=== PATIENT | female | born 1995 | race Caucasian/White ===

== ENCOUNTER 2016-12-27 00:17 | Emergency (ER) | payer BC, OTHER ==
[~2016-12-27] VITALS: Ht 149.9 cm; Wt 63.5 kg
[2016-12-27 00:41] VITALS: BP 165/78
== END 2016-12-27 02:03 | disposition left against medical advice (07) ==
LOC: M ED 01:20
DX: S69.90XA Unspecified injury of unspecified wrist, hand and finger(s), initial encounter (principal); X58.XXXA Exposure to other specified factors, initial encounter; Y92.89 Other specified places as the place of occurrence of the external cause; Y93.89 Activity, other specified; Y99.8 Other external cause status; Z53.29 Procedure and treatment not carried out because of patient's decision for other reasons

== ENCOUNTER 2017-09-01 13:59 | Emergency (ER) | payer BC, OTHER ==
[~2017-09-01] VITALS: Ht 152.4 cm; Wt 61.8 kg
[2017-09-01 15:46] LABS: BASO % 0.2 % (0.0-1.0); EOS # 0.1 10^3/uL (0.0-0.50); EOS % 0.6 % (0.0-3.0); IMMATURE GRANULOCYTE % 0.6 % (0-0); LYMPH # 1.4 10^3/uL (1.5-6.5); LYMPH % 17.5 % (24.0-44.0); MEAN CORPUSCULAR HEMOGLOBIN 28.8 pg (27.0-33.0); MEAN CORPUSCULAR HGB CONC 32.9 g/dl (32.0-36.5); MEAN CORPUSCULAR VOLUME 87.5 fl (80.0-96.0); MONO # 0.7 10^3/uL (0.0-0.8); MONO % 8.1 % (0.0-5.0); NEUTROPHILS # 5.9 10^3/uL (1.8-7.7); PLATELET COUNT, AUTOMATED 320 10^3/uL (150-450); RED CELL DISTRIBUTION WIDTH 11.6 % (11.5-14.5)
[2017-09-01 15:48] LABS: CONTROL LINE HCG INT CTR LINE PRESENT
[2017-09-01 16:22] LABS: CONTROL LINE UCG INT CTR LINE PRESENT
--- NOTE | 2017-09-01 16:48 | REP ---
Clinical: Periumbilical and left lower quadrant abdominal pain. Technique: Upright view of the chest with supine and upright views of the abdomen and pelvis. Findings: Frontal upright view of the chest demonstrates no acute cardiopulmonary process or free air below the diaphragm to suspect pneumoperitoneum. Supine and upright views of the abdomen and pelvis demonstrate nonspecific bowel gas pattern without obstruction or perforation. No organomegaly. No abnormal calcifications. Skeletal structures normal for age. Impression: Nonspecific bowel gas pattern. Signed by Ranjith Ledesma MD 09/01/2017 04:39 P
[2017-09-01 17:24] LABS: ALBUMIN 4.3 GM/DL (3.2-5.2); ALBUMIN/GLOBULIN RATIO 1.23 (1.00-1.93); ALKALINE PHOSPHATASE 69 U/L (45-117); ALT/SGPT 43 U/L (12-78); ANION GAP 8 MEQ/L (8-16); AST/SGOT 24 U/L (7-37); BILIRUBIN,DIRECT < 0.1 MG/DL (0.0-0.2); BILIRUBIN,TOTAL 0.3 MG/DL (0.2-1.0); BLOOD UREA NITROGEN 6 MG/DL (7-18); CALCIUM LEVEL 9.2 MG/DL (8.5-10.1); CARBON DIOXIDE LEVEL 25 MEQ/L (21-32); CHLORIDE LEVEL 107 MEQ/L (98-107); CREATININE FOR GFR 0.65 MG/DL (0.55-1.02); GLOMERULAR FILTRATION RATE > 60.0 (>60); GLUCOSE, FASTING 83 MG/DL (70-105); POTASSIUM SERUM 4.3 MEQ/L (3.5-5.1); SODIUM LEVEL 140 MEQ/L (136-145); TOTAL PROTEIN 7.8 GM/DL (6.4-8.2)
[2017-09-01 17:55] VITALS: BP 128/68
== END 2017-09-01 17:57 | disposition home or self-care (01) ==
LOC: M ED 13:59
DX: R10.9 Unspecified abdominal pain (principal)

== ENCOUNTER → 2017-12-09 | Outpatient (CLI) | payer BC, OTHER | LOC: M RAD 20:29 | DX: M79.601 Pain in right arm (principal) | CPT/HCPCS: 73060 ==

== ENCOUNTER → 2018-11-06 | Outpatient (REF) | payer OTHER ==
[2018-11-06 20:16] LABS: APPEARANCE, URINE CLOUDY (CLEAR); BACTERIA, URINE AUTO 3+ (NEGATIVE); BILIRUBIN, URINE AUTO NEGATIVE (NEGATIVE); BLOOD, URINE BLOOD 2+ (NEGATIVE); COLOR, URINE YELLOW (YELLOW); GLUCOSE, URINE (UA) AUTO NEGATIVE (NEGATIVE); KETONE, URINE AUTO NEGATIVE (NEGATIVE); LEUKOCYTE ESTERASE, URINE AUTO 2+ (NEGATIVE); MUCUS, URINE SMALL (NEGATIVE); NITRITE, URINE AUTO POSITIVE (NEGATIVE); PROTEIN, URINE AUTO 2+ mg/dL (NEGATIVE); RBC, URINE AUTO 57 /HPF (0-3); SPECIFIC GRAVITY URINE AUTO 1.014 (1.002-1.035); SQUAMOUS EPITHELIAL CELL UR AU 10 /HPF (0-6); UROBILINOGEN, URINE AUTO 0.2 mg/dL (0.0-2.0); WBC, URINE AUTO 79 /HPF (0-3)
== END ==
LOC: M LAB REF 14:42
PROVIDERS: ATTEND Physician Assistant Medical
DX: N39.0 Urinary tract infection, site not specified (principal)

== ENCOUNTER 2020-02-09 23:35 | Emergency (ER) | payer BC, OTHER ==
[~2020-02-09] VITALS: Ht 152.4 cm; Wt 73.6 kg
[2020-02-10] MEDS ORDERED: DICYCLOMINE 10 MG CAP PO ONE (00:15)
[2020-02-10] MEDS ORDERED: ONDANSETRON 4 MG ORAL DISINTEGRATING TAB PO ONE (00:15)
[2020-02-10 00:37] LABS: BASO % 0.2 % (0.0-1.0); EOS # 0.1 10^3/uL (0.0-0.5); EOS % 0.5 % (0.0-3.0); HEMATOCRIT 41.2 % (36.0-47.0); HEMOGLOBIN 13.6 g/dl (12.0-15.5); LYMPH # 1.8 10^3/uL (1.5-5.0); LYMPH % 11.9 % (24.0-44.0); MEAN CORPUSCULAR HEMOGLOBIN 28.4 pg (27.0-33.0); MONO # 0.8 10^3/uL (0.0-0.8); MONO % 5.7 % (0.0-5.0); NEUTROPHILS # 11.9 10^3/uL (1.5-8.5); PLATELET COUNT, AUTOMATED 363 10^3/uL (150-450); RED BLOOD COUNT 4.79 10^6/uL (4.00-5.40); WHITE BLOOD COUNT 14.7 10^3/uL (4.0-10.0)
[2020-02-10 01:34] LABS: ALBUMIN 3.9 GM/DL (3.2-5.2); BILIRUBIN,DIRECT 0.2 MG/DL (0.0-0.2); BILIRUBIN,TOTAL 0.5 MG/DL (0.2-1.0); TOTAL PROTEIN 7.7 GM/DL (6.4-8.2)
--- NOTE | 2020-02-10 02:31 | REP ---
Clinical: Right-sided abdominal pain and nausea. Technique: Upright view of the chest with supine and upright views of the abdomen and pelvis. Findings: Frontal upright view of the chest demonstrates no acute cardiopulmonary process or free air below the diaphragm to suspect pneumoperitoneum. Supine and upright views of the abdomen and pelvis demonstrate nonspecific bowel gas pattern without obstruction or perforation. No organomegaly. No abnormal calcifications. Skeletal structures normal for age. Impression: Nonspecific bowel gas pattern. Electronically Signed by Ranjith Ledesma MD 02/10/2020 02:23 A
[2020-02-10] MEDS ORDERED: REGL10TA6 PO (02:41)
--- NOTE | 2020-02-10 03:04 | REPVR ---
PROCEDURE INFORMATION: Exam: US First Trimester, Transabdominal Exam date and time: 02/10/20 (2:20am) Age: 24 years old Clinical indication: patient. Left-sided pelvic pain. Gestational age or LMP: unknown. TECHNIQUE: Imaging protocol: Real-time transabdominal obstetrical ultrasound of the maternal pelvis and a first trimester , less than 14 weeks 0 days, with image documentation. The patient declined a transvaginal examination. COMPARISON: No relevant prior studies available FINDINGS: The LMP is not known. A small intrauterine fluid collection is seen --- perhaps an early intrauterine gestational sac. If this represents an early sac, it corresponds to an expected age = 6 weeks 1 day (MSD = 13 mm). No pole and no yolk sac are seen. The uterus is anteverted, measuring 8.4 x 4.3 x 5.0 cm in dimensions. The maternal right ovary is not visualized. The left ovary measures 2.4 x 1.9 x 2.7 cm in dimensions, with no evidence of torsion. No free pelvic fluid is appreciated. No solid adnexal mass. IMPRESSION: A small intrauterine fluid collection is seen --- perhaps an early intrauterine gestational sac. If this represents an early sac, it corresponds to an expected age = 6 weeks 1 day (based on the MSD). No pole and no yolk sac are seen. The differential diagnosis includes: early intrauterine ; missed ; failed early ; nonvisualized ectopic . Clinical and quantitative hCG correlation are needed. A follow-up sonogram in 6-10 days can be obtained to assess for development and heartbeat, if felt appropriate. In the appropriate clinical setting, an ectopic cannot be excluded. Electronically signed by: Eunice Lindsey On 02/10/2020 03:04:15 AM
[2020-02-10 03:12] VITALS: BP 131/75
== END 2020-02-10 03:13 | disposition home or self-care (01) ==
LOC: M ED 23:35
DX: Z32.01 Encounter for pregnancy test, result positive (principal); R11.0 Nausea; R10.30 Lower abdominal pain, unspecified; Z3A.01 Less than 8 weeks gestation of pregnancy
CPT/HCPCS: 74021; 76801; 80047; 80076; 81001; 83690; 84702; 85025; 87086; 99283; Q0162

== ENCOUNTER 2020-02-22 15:46 | Emergency (ER) | payer BC, OTHER ==
[~2020-02-22] VITALS: Ht 152.4 cm; Wt 72.4 kg
[~2020-02-22 15:46] MED LIST: REGL10TA6 PO
[2020-02-22] MEDS ORDERED: PREN29TA4 PO (15:55)
[2020-02-22] MEDS ORDERED: ONDANSETRON 4MG/2ML VIAL IV ONE (17:15)
[2020-02-22] MEDS ORDERED: NS 1,000 ML IV ONE (17:15)
[2020-02-22 17:51] LABS: BASO % 0.1 % (0.0-1.0); EOS % 0.3 % (0.0-3.0); HEMATOCRIT 41.7 % (36.0-47.0); HEMOGLOBIN 13.8 g/dl (12.0-15.5); LYMPH # 1.4 10^3/uL (1.5-5.0); LYMPH % 9.3 % (24.0-44.0); MEAN CORPUSCULAR HEMOGLOBIN 28.6 pg (27.0-33.0); MEAN CORPUSCULAR HGB CONC 33.1 g/dl (32.0-36.5); MEAN CORPUSCULAR VOLUME 86.3 fl (80.0-96.0); MONO # 0.8 10^3/uL (0.0-0.8); MONO % 5.4 % (0.0-5.0); NEUTROPHILS # 12.5 10^3/uL (1.5-8.5); NEUTROPHILS % 84.1 % (36.0-66.0); PLATELET COUNT, AUTOMATED 390 10^3/uL (150-450); RED BLOOD COUNT 4.83 10^6/uL (4.00-5.40); WHITE BLOOD COUNT 14.8 10^3/uL (4.0-10.0)
[2020-02-22 18:23] LABS: ALBUMIN 3.7 GM/DL (3.2-5.2); ALT/SGPT 42 U/L (12-78); BILIRUBIN,DIRECT < 0.1 MG/DL (0.0-0.2); BILIRUBIN,TOTAL 0.4 MG/DL (0.2-1.0); BLOOD UREA NITROGEN 9 MG/DL (7-18); CALCIUM LEVEL 9.4 MG/DL (8.5-10.1); CARBON DIOXIDE LEVEL 25 MEQ/L (21-32); CHLORIDE LEVEL 102 MEQ/L (98-107); CREATININE FOR GFR 0.59 MG/DL (0.55-1.30); GLOMERULAR FILTRATION RATE > 60.0 (>60); GLUCOSE, FASTING 78 MG/DL (70-100); LIPASE 69 U/L (73-393); POTASSIUM SERUM 5.6 MEQ/L (3.5-5.1); SODIUM LEVEL 133 MEQ/L (136-145)
[2020-02-22 19:29] VITALS: BP 116/62
--- NOTE | 2020-02-22 19:39 | REPVR ---
PROCEDURE INFORMATION: Exam: US First Trimester, Transabdominal Exam date and time: 02/22/2020 7:17 PM Age: 24 years old Clinical indication: complicated by abdominal or pelvic pain; Generalized abdominal pain; First trimester; Gestational age or lmp: 7; ; Additional info: Abd pain, 8 weeks . R/O ectopic TECHNIQUE: Imaging protocol: Real-time transabdominal obstetrical ultrasound of the maternal pelvis and a first trimester , less than 14 weeks 0 days, with image documentation. COMPARISON: 1ST TRIMESTER US 02/10/2020 2:17 AM FINDINGS: GESTATION: Gestation: Live single intrauterine gestation. Yolk sac is apparent. Heart rate: heart rate is 167 bpm. Placenta: No subchorionic hemorrhage is identified. Amniotic fluid: Amniotic fluid is normal for gestational age. BIOMETRY: Estimated gestational age: 7 weeks 3 days. [place]-Rump length: [place]-rump length is 11.5 cm consistent with 7 week 3 day gestation. MATERNAL: Uterus: Unremarkable. Cervix: Unremarkable. Right adnexa: Unremarkable. Left adnexa: Unremarkable. Intraperitoneal: No intraperitoneal free fluid. Other findings: The adnexae are unremarkable. Urinary bladder is unremarkable. No free fluid in the cul-de-sac. IMPRESSION: Live single intrauterine gestation with ultrasound age of 7 weeks 3 days with an TREVOR of 10/07/2020. No ectopic is identified however one not entirely excluded. Electronically signed by: Alondra Gilliland On 02/22/2020 19:38:55 PM
== END 2020-02-22 19:47 | disposition home or self-care (01) ==
LOC: M ED 15:46
DX: O21.0 Mild hyperemesis gravidarum (principal); O99.281 Endocrine, nutritional and metabolic diseases complicating pregnancy, first trimester; E86.0 Dehydration; Z3A.08 8 weeks gestation of pregnancy; Z79.899 Other long term (current) drug therapy
CPT/HCPCS: 76801; 80048; 80076; 81001; 83690; 85025; 87086; 96361; 96374; 99284; J2405

== ENCOUNTER → 2020-03-15 | Outpatient (REF) | payer OTHER ==
[~2020-03-15] MED LIST changes: +PREN29TA4 PO
[2020-03-15 18:35] LABS: HEMATOCRIT 41.3 % (36.0-47.0); HEMOGLOBIN 13.3 g/dl (12.0-15.5); MEAN CORPUSCULAR HEMOGLOBIN 28.5 pg (27.0-33.0); MEAN CORPUSCULAR HGB CONC 32.2 g/dl (32.0-36.5); MEAN CORPUSCULAR VOLUME 88.4 fl (80.0-96.0); PLATELET COUNT, AUTOMATED 341 10^3/uL (150-450); RED BLOOD COUNT 4.67 10^6/uL (4.00-5.40); WHITE BLOOD COUNT 10.6 10^3/uL (4.0-10.0)
[2020-03-16 11:31] LABS: HEPATITIS C VIRUS ABY INDEX 0.1 INDEX (<0.8); HIV 1&2 SCREEN CENTAUR NEGATIVE (NEGATIVE)
[2020-03-17 13:30] LABS: CHLAMYDIA DNA AMPLIFICATION NEGATIVE (NEGATIVE); GC DNA AMPLIFICATION NEGATIVE (NEGATIVE)
== END ==
LOC: M PLALAB 13:59
PROVIDERS: ATTEND Advanced Practice Midwife
DX: Z34.01 Encounter for supervision of normal first pregnancy, first trimester (principal); Z3A.10 10 weeks gestation of pregnancy

== ENCOUNTER → 2020-04-13 | Outpatient (REF) | payer OTHER | LOC: M SFHCWAGY 17:29 | PROVIDERS: ATTEND Advanced Practice Midwife | DX: Z34.02 Encounter for supervision of normal first pregnancy, second trimester (principal) ==

== ENCOUNTER → 2020-05-14 | Outpatient (CLI) | payer BC ==
--- NOTE | 2020-07-06 15:21 | REP ---
OBSTETRICAL ULTRASOUND: Delay in reporting results from malfunction of the hospital computer system because of a malware attack. FINDINGS: There is a single intrauterine gestation in a transverse lie with the head to the maternal left. The placenta is anterior, grade 0 without previa. heart rate is 140 beats per minute. The cervix measures 4.6 cm in length. Subjectively, the amniotic fluid volume is normal. The composite estimated gestational age is 19 weeks 3 days. The estimated weight is 277 grams, 0 pounds 10 ounces. TREVOR is 10/05/20. The following anatomic structures are not optimally demonstrated: Four chamber view of the heart. A follow up study dedicated to this structure should be considered. The following anatomic structures are identified and are unremarkable: Cisterna magna, cavum septum pellucidum, thalami, spine, stomach, kidneys, cardiac right and left outflow tracts, bladder, three vessel cord, cord insertion, upper and lower extremities and face and upper lip. MTDD
== END ==
LOC: M WHC 14:58
PROVIDERS: ATTEND Advanced Practice Midwife
DX: Z34.82 Encounter for supervision of other normal pregnancy, second trimester (principal); Z3A.19 19 weeks gestation of pregnancy

== ENCOUNTER → 2020-06-29 | Outpatient (CLI) | payer BC, OTHER, SELFPAY ==
--- NOTE | 2020-07-19 16:04 | REP ---
FOLLOW UP OBSTETRICAL ULTRASOUND: COMPARISON: 05/14/20 TECHNIQUE: Transabdominal obstetrical ultrasound with color Doppler evaluation. FINDINGS: Ultrasound examination demonstrates a single live intrauterine in cephalic presentation. motion was identified by technologist. The placenta is noted anteriorly and grade 0 without evidence for placenta previa or abruption. Amniotic fluid volume is normal. The cervix measures 3.6 cm in length and appears closed. No evidence for a nuchal cord. Gestational age by LMP is 26 weeks 0 days with estimated date of delivery of 10/05/20. Gestational age by current measurements is 26 weeks 5 days with estimated date of delivery of 09/30/20. heart rate is 139 beats per minute. Estimated weight is 919 grams (55th percentile). Anatomical assessment demonstrate normal cranium, choroid plexus, ventricles, cerebellum/posterior fossa, facial features, lungs, four chamber heart/cardiac ventricular outflow tracts, diaphragm, stomach, three vessel cord/cord insertion, kidneys/bladder, spine and extremities. IMPRESSION: Single live intrauterine in cephalic presentation demonstrating appropriate interval growth. In conjunction with the prior examination, anatomical assessment is complete and normal. No gross abnormalities are identified. MTDD
== END ==
LOC: M RAD 07:21
PROVIDERS: ATTEND Advanced Practice Midwife
DX: Z36.2 Encounter for other antenatal screening follow-up (principal)

== ENCOUNTER → 2020-07-07 | Outpatient (CLI) | payer BC ==
[2020-07-07 13:52] LABS: BASO % 0.1 % (0.0-1.0); EOS # 0.1 10^3/uL (0.0-0.5); EOS % 0.8 % (0.0-3.0); HEMATOCRIT 37.1 % (36.0-47.0); HEMOGLOBIN 11.4 g/dl (12.0-15.5); LYMPH # 1.3 10^3/uL (1.5-5.0); LYMPH % 11.1 % (24.0-44.0); MEAN CORPUSCULAR HEMOGLOBIN 27.5 pg (27.0-33.0); MEAN CORPUSCULAR HGB CONC 30.7 g/dl (32.0-36.5); MEAN CORPUSCULAR VOLUME 89.6 fl (80.0-96.0); MONO # 0.6 10^3/uL (0.0-0.8); MONO % 4.7 % (0.0-5.0); NEUTROPHILS # 9.6 10^3/uL (1.5-8.5); NEUTROPHILS % 82.2 % (36.0-66.0); PLATELET COUNT, AUTOMATED 282 10^3/uL (150-450); RED BLOOD COUNT 4.14 10^6/uL (4.00-5.40); WHITE BLOOD COUNT 11.7 10^3/uL (4.0-10.0)
== END ==
LOC: M WUC 10:25
PROVIDERS: ATTEND Advanced Practice Midwife
DX: Z34.82 Encounter for supervision of other normal pregnancy, second trimester (principal); Z3A.00 Weeks of gestation of pregnancy not specified
CPT/HCPCS: 36415; 82950; 85025; 86850; 86900; 86901; J2790

== ENCOUNTER → 2020-07-12 | Outpatient (CLI) | payer BC | LOC: M LAB 05:59 | PROVIDERS: ATTEND Advanced Practice Midwife | DX: Z34.82 Encounter for supervision of other normal pregnancy, second trimester (principal); Z3A.00 Weeks of gestation of pregnancy not specified ==

== ENCOUNTER → 2020-07-19 | Outpatient (CLI) | payer BC | LOC: M LABSMTC 13:16 | PROVIDERS: ATTEND Pediatrics | DX: Z20.828 Contact with and (suspected) exposure to other viral communicable diseases (principal) | CPT/HCPCS: C9803; U0002 ==

== ENCOUNTER → 2020-09-11 | Outpatient (REF) | payer BC | LOC: M SFHCWAGY 16:55 | PROVIDERS: ATTEND Advanced Practice Midwife | DX: Z3A.36 36 weeks gestation of pregnancy (principal); Z34.83 Encounter for supervision of other normal pregnancy, third trimester ==

== ENCOUNTER → 2020-09-21 | Outpatient (CLI) | payer BC ==
[~2020-09-21] MED LIST changes: +OMEP10CASR PO
[2020-09-21 19:33] LABS: HEMATOCRIT 34.9 % (36.0-47.0); HEMOGLOBIN 10.1 g/dl (12.0-15.5); MEAN CORPUSCULAR HEMOGLOBIN 24.2 pg (27.0-33.0); MEAN CORPUSCULAR HGB CONC 28.9 g/dl (32.0-36.5); MEAN CORPUSCULAR VOLUME 83.7 fl (80.0-96.0); PLATELET COUNT, AUTOMATED 297 10^3/uL (150-450); RED BLOOD COUNT 4.17 10^6/uL (4.00-5.40); WHITE BLOOD COUNT 12.9 10^3/uL (4.0-10.0)
[2020-09-21 19:39] LABS: ALT/SGPT 23 U/L (12-78); BILIRUBIN,TOTAL 0.1 MG/DL (0.2-1.0); CREATININE FOR GFR 0.56 MG/DL (0.55-1.30); GLOMERULAR FILTRATION RATE > 60.0 (>60); LDH LACTATE DEHYDROGENASE 167 U/L (84-246); URIC ACID 3.5 MG/DL (2.6-6.0)
[2020-09-21 20:00] LABS: TOTAL PROTEIN,RANDOM URINE 34.4 MG/DL (0.0-12.0)
== END ==
LOC: M WUC 15:27
PROVIDERS: ATTEND Advanced Practice Midwife
DX: O16.3 Unspecified maternal hypertension, third trimester (principal); Z3A.00 Weeks of gestation of pregnancy not specified

== ENCOUNTER 2020-09-24 13:37 | Inpatient (IN) | payer BC ==
[~2020-09-24] VITALS: Ht 152.4 cm; Wt 85.0 kg
[2020-09-24] VITALS (9 sets, daily range): BP systolic 103–135; BP diastolic 56–81
[~2020-09-24 13:37] MED LIST changes: -OMEP10CASR PO
[2020-09-24] MEDS ORDERED: OMEP10CASR PO (14:00)
[2020-09-24] MEDS ORDERED: LACTATED RINGER'S 1000 ML IV STA (14:20)
[2020-09-24 15:07] LABS: HEMATOCRIT 31.7 % (36.0-47.0); HEMOGLOBIN 9.6 g/dl (12.0-15.5); MEAN CORPUSCULAR HEMOGLOBIN 24.7 pg (27.0-33.0); MEAN CORPUSCULAR HGB CONC 30.3 g/dl (32.0-36.5); MEAN CORPUSCULAR VOLUME 81.5 fl (80.0-96.0); PLATELET COUNT, AUTOMATED 294 10^3/uL (150-450); RED BLOOD COUNT 3.89 10^6/uL (4.00-5.40); WHITE BLOOD COUNT 14.4 10^3/uL (4.0-10.0)
[2020-09-24 15:35] LABS: ALT/SGPT 25 U/L (12-78); BILIRUBIN,TOTAL 0.1 MG/DL (0.2-1.0); CREATININE FOR GFR 0.53 MG/DL (0.55-1.30); GLOMERULAR FILTRATION RATE > 60.0 (>60); LDH LACTATE DEHYDROGENASE 172 U/L (84-246); URIC ACID 3.3 MG/DL (2.6-6.0)
--- NOTE | 2020-09-24 16:25 | HPEPDOC ---
Obstetrical History & Physical General Date of Admission Sep 24, 2020 at 13:37 Primary Care Physician: STEFANY HARRIS CNM History of Present Illness Trish is a 25-year-old female who is a at 38.3 weeks gestation with an TREVOR of 10/05/20 based off of her LMP and consistent with her first trimester ultra sound. She initiated care in her first trimester with [facility]. Her has been complicated by GHTN. She presents to L&D today for an IOL due to GHTN. Her BP ion the office last week on Thursday was 140/88 and today was 140/86. Her preeclamptic labs from Thursday were normal. She denies preeclamptic symptoms. She reports active movement. She denies leaking of fluid, vaginal bleeding or contractions. Chief Complaint: Gestational Hypertension Information Provided By: Patient Age: 25 : 1 Term: 0 Pre-term: 0 Abortions: 0 Livin Care Care: Good Care Dating Final EDC: Oct 05, 2020 Final EDC by: LMP EGA at Admission: 38.2 Antepartum Course Diagnos(e)s GHTN Height (inches): 60 Pre- weight (lbs.): 157 Admission Weight (lbs.): 191 Past Medical History Past Obstetrical History : Past Obstetrical History: Primgravida Past Medical History Medical History non-contributory Surgical History: Other (repair of nose) Family History Significant Family History: Diabetes, Heart disease Social History Marital Status: Single Family situation: Spouse/partner home Psychosocial History: No pertinent psych hx * Smoker: non-smoker Alcohol: Denies Drugs: denies Abuse Violence Screening Have you been hit/kicked/slapp: No Have you been sexually assault: No Imunizations Tdap status: declined Influenza Status: current Allergies Coded Allergies: bee venom protein (honey bee) (Verified Allergy, Severe, 09/24/20) Medications Scheduled Omeprazole (Omeprazole) 10 Mg Capsule.dr, 10 MG PO DAILY Prenat 115/Iron Fum/Folic/Dss ( 19 Tablet) 1 Each Tablet, 1 TAB PO DAILY Physical Examination Physical Examination GENERAL: Alert and oriented times three. BREAST: . ABDOMEN: Gravid and non-tender to touch. FETUS: Is vertex (VTX) by sterile vaginal examination (SVE), fetus is vertex (VTX) by Domo. HEART RATE: Regular rate and rhythm. LUNGS: Clear to auscultation (CTA). EXTREMITIES: +1 edema of feet and legs. No clonus. Deep tendon reflexes (DTRs) + 2. Vital Signs/I&O Vital Signs Date Time Temp Pulse Resp B/P (MAP) Pulse Ox O2 Delivery O2 Flow Rate FiO2 09/24/20 14:12 98.8 90 18 115/66 (82) Laboratory Data 24H LABS Laboratory Tests 2 09/24/20 13:44: Serology Scanned Report Hepatitis B Testing 09/24/20 14:53: Nucleated Red Blood Cells % (auto) 0.0, Glomerular Filtration Rate > 60.0, Uric Acid 3.3, Total Bilirubin 0.1L, Aspartate Amino Transf (AST/SGOT) 14, Alanine Aminotransferase (ALT/SGPT) 25, Lactate Dehydrogenase 172 CBC/BMP Laboratory Tests 09/24/20 14:53 Pertinent Laboratoy Data Blood Type: A- RBC Antibody Screen: Negative HIV: Negative Hepatitis B: Negative Hepatitis C: Negative Rapid Plasma Reagin: Nonreactive Rubella: Immune Chlamydia/Gonorrhea: Negative Group B Streptococcus: Negative Vaginal Examination Dilation: Fingertip Effacement: 50% Station: -3 Cervical Consistency: Soft Cervical Position: Posterior Presentation: Cephalic presentation Position: Vertex (occiput) Assessment Heart Rate (FHR): 130 Variability: Moderate Accelerations: Positive Decelerations: None Tocometer Contractions: No Multi-drug resistant Organism: No history of MDRO Assessment/Plan Assessment IUP at 38.2 weeks gestation GHTN Category I FHR tracing GBS negative Plan Admit to L&D. Dr. Mohamud aware of patient being in department and plan of care collaborated. OOB ad wen. Diet: regular now then will switch to clear diet prior to pitocin. Group B Streptococcus (GBS) negative. Labs and intravenous (IV) per unit protocol. Counseled on Cytotec, beltran bulb, and Pitocin for induction of labor (IOL). Anesthesia consult per patient's request. Lactated Ringers (LR): Bolus 500 mL prior to epidural, then at 125 mL/hr. Anticipate cervical ripening. C-S as appropriate. STEFANY HARRIS CNM Sep 24, 2020 16:25
[2020-09-24] MEDS: miSOPROStol 50 MCG 1/2 TAB (S0191) PO SCH ×2 (16:38→20:44)
[2020-09-24] MEDS ORDERED: ACETAMINOPHEN 500 MG TAB PO PRN (22:00)
[2020-09-25] VITALS (47 sets, daily range): BP systolic 98–181; BP diastolic 54–105
[2020-09-25] MEDS: miSOPROStol 50 MCG 1/2 TAB (S0191) PO SCH (01:00)
[2020-09-25] MEDS: LR 1,000 ML IV SCH ×3 (08:41→16:35)
[2020-09-25] MEDS ORDERED: OXYTOCIN DRIP 30 UNITS in IV 1 EA IV SCH (08:45)
--- NOTE | 2020-09-25 08:58 | IPNPDOC ---
Obstetrical Progress Note Date of Service Sep 25, 2020 Subjective Patient reports she is doing well. Denies feeling contractions. Objective Vital Signs Date Time Temp Pulse Resp B/P (MAP) Pulse Ox O2 Delivery O2 Flow Rate FiO2 09/25/20 07:13 93 123/69 (87) 09/25/20 07:12 99 Room Air 09/25/20 07:11 98.0 16 Assessment Heart Rate (FHR): 120 Variability: Moderate Accelerations: Positive Decelerations: None Heart Rate Tracing: Category I Tocometer Contractions: Yes Frequency: irregular, every 2-5 min. Sterile Vaginal Examination Dilation: 2cm Effacement (%): 80% Station: -1 Cervical Consistency: Soft Cervical Position: Anterior Postion/Presentation: Cephalic presentation Assessment and Plan Age: 25 : 1 Term: 0 Pre-term: 0 Abortions: 0 Livin EGA at Admission: 38.4 Status: Reassuring Group B Streptococcus: Negative Anticipate: Vaginal Delivery Additional Comments beltran bulb inserted with 60 cc of NS. Patient tolerated well. IV Pitocin ordered and to be started. STEFANY HARRIS CNM Sep 25, 2020 08:58
[2020-09-25] MEDS ORDERED: FENTANYL 2MCG/ML ROPIVACAINE 0.2% IN 0.9% NACL 100ML IVBAG As Ordered ONE (10:15)
[2020-09-25] MEDS ORDERED: NALOXONE INJ 0.4MG/1ML VIAL (J2310 PER 1MG) IV PRN (12:15)
[2020-09-25] MEDS ORDERED: LACTATED RINGER'S 1000 ML IV PRN (12:15)
[2020-09-25] MEDS ORDERED: EPIDURAL COMMENT XX SCH (12:15)
[2020-09-25] MEDS ORDERED: ePHEDrine SULFATE 25 MG/5 ML(5MG/ML) SYRINGE IV PRN (12:15)
[2020-09-25] MEDS ORDERED: REFRIGERATOR IV KEYS XX PRN (12:15)
[2020-09-25] MEDS ORDERED: EPIDURAL/PCA KEYS XX PRN (12:15)
[2020-09-25] MEDS ORDERED: ONDANSETRON 4MG/2ML VIAL IV PRN ×2 (12:15→19:30)
[2020-09-25] MEDS ORDERED: FENTANYL/ROPIVACAINE/NACL BAG 100 ML EPIDURAL SCH (12:15)
[2020-09-25] MEDS ORDERED: diphenhydrAMINE 50MG/ML VIAL (J1200) IV PRN (12:15)
[2020-09-25] MEDS ORDERED: ACETAMINOPHEN 500 MG TAB PO PRN (19:30)
[2020-09-25] MEDS ORDERED: RHOGAM 300 MCG (1500 IU) INJ (J2790) IM SCH (19:30)
[2020-09-25] MEDS ORDERED: IBUPROFEN 800 MG TAB PO PRN (19:30)
[2020-09-25] MEDS ORDERED: ACETAMINOPHEN TAB 650MG DOSE (2X325MG) PO PRN (19:30)
[2020-09-25] MEDS ORDERED: METHYLERGONOVINE MALEATE 0.2 MG TAB PO PRN (19:30)
[2020-09-25] MEDS ORDERED: BENZOCAINE 20% HEMORRHOIDAL OINTMENT 28GM TUBE TOP PRN (19:30)
[2020-09-25] MEDS ORDERED: IBUPROFEN 600MG TAB PO PRN (19:30)
[2020-09-25] MEDS ORDERED: OXYTOCIN DRIP 30 UNITS in IV 1 EA IV ONE (19:30)
[2020-09-25] MEDS ORDERED: MEASLES,MUMPS,RUBELLA VACCINE INJ (MMR-II) (90707) SC SCH (19:30)
[2020-09-25] MEDS ORDERED: LIDOCAINE 1% MDV 20ML VIAL INFIL ONE (19:30)
[2020-09-25] MEDS ORDERED: DOCUSATE SODIUM 100MG CAPSULE PO PRN (19:30)
--- NOTE | 2020-09-25 19:39 | DNPDOC ---
[facility] Delivery Note Delivery Note DATE OF DELIVERY: September 25, 2020 PREDELIVERY DIAGNOSIS: 38-2/7 weeks, gestational hypertension, induction POST DELIVERY DIAGNOSIS: Delivered. PROCEDURE: Spontaneous vaginal delivery. SOFTWARE INSTALLATION ENGINEER: Dr. Ezekiel Parks MD ANESTHESIA: epidural. ESTIMATED BLOOD LOSS: 500 mL. FINDINGS: 6 pound 1 ounce female , Score 8/9. DELIVERY SUMMARY: Patient is a 25-year-old 1 now para 1 who was admitted to labor and delivery for induction due to gestational hypertension. She received Misoprostol, A Cook's Catheter, and Pitocin. After a 50 minute second stage of labor she had spontaneous vaginal delivery of a 6 lb. 1 oz. female . No nuchal cord. Shoulders delivered with ease. Placenta delivered spontaneously and appeared intact. Pt received IV Pitocin immediately after delivery of the placenta. A second degree perineal laceration was repaired under local anesthesia with 2-O Chromic in the usual fashion. Sponge and needle counts correct. EZEKIEL PARKS MD Sep 25, 2020 19:39
[2020-09-26 06:27] VITALS: BP 134/67
[2020-09-26] MEDS: PRENATAL VITAMINS CHEWABLE TABLET PO SCH (09:00)
[2020-09-26 18:00] VITALS: BP 142/71
[2020-09-27 06:00] VITALS: BP 122/67
[2020-09-27 08:06] VITALS: BP 122/67
[2020-09-27] MEDS: PRENATAL VITAMINS CHEWABLE TABLET PO SCH (08:20)
== END 2020-09-27 17:50 | disposition home or self-care (01) | DRG 560 ==
LOC: M LDI 13:37 → M OBS 09-25 21:11
PROVIDERS: ADMIT Advanced Practice Midwife; ATTEND Specialist
PROC: 3E0P7GC Introduction of Other Therapeutic Substance into Female Reproductive, Via Natural or Artificial Opening (ICD-10-PCS; 2020-09-24)
PROC: 10E0XZZ Delivery of Products of Conception, External Approach (ICD-10-PCS; principal; 2020-09-25)
PROC: 0KQM0ZZ Repair Perineum Muscle, Open Approach (ICD-10-PCS; 2020-09-25)
DX: O13.4 Gestational [pregnancy-induced] hypertension without significant proteinuria, complicating childbirth (principal); Z3A.38 38 weeks gestation of pregnancy; O70.1 Second degree perineal laceration during delivery; Z37.0 Single live birth

== ENCOUNTER → 2020-12-09 | Outpatient (REF) | payer BC ==
[~2020-12-09] MED LIST changes: +OMEP10CASR PO
[2020-12-09 19:39] LABS: APPEARANCE, URINE MANUAL CLEAR (CLEAR); COLOR, URINE MANUAL ORANGE (YELLOW)
[2020-12-09 19:41] LABS: SPECIFIC GRAVITY,URINE MANUAL 1.005 (1.002-1.035)
[2020-12-09 19:42] LABS: BLOOD URINE MANUAL NEGATIVE (NEGATIVE); LEUKOCYTE ESTERASE, URINE MAN OBSCURED (NEGATIVE); NITRITE, URINE MANUAL OBSCURED (NEGATIVE); PROTEIN, URINE MANUAL OBSCURED mg/dL (NEGATIVE)
[2020-12-09 19:43] LABS: BILIRUBIN, URINE MANUAL OBSCURED (NEGATIVE); GLUCOSE, URINE (UA) MANUAL OBSCURED mg/dL (NEGATIVE); KETONE, URINE MANUAL OBSCURED mg/dL (NEGATIVE); UROBILINOGEN, URINE MANUAL OBSCURED mg/dl (NORMAL)
[2020-12-09 20:13] LABS: BACTERIA, URINE LARGE AMOUNT; HYALINE CAST, URINE NONE SEEN /lpf (0-1); SQUAMOUS EPITHELIAL CELL URINE SMALL AMOUNT /hpf (SMALL AMT); WBC, URINE 40-50 /hpf (0-3)
== END ==
LOC: M LAB REF 17:28
PROVIDERS: ATTEND Physician Assistant Medical
DX: N39.0 Urinary tract infection, site not specified (principal)

== ENCOUNTER 2021-08-27 07:01 | Emergency (ER) | payer BC, OTHER ==
[~2021-08-27] VITALS: Ht 152.4 cm; Wt 76.6 kg
--- OUTSIDE RECORDS SUMMARY | 2021-08-27 07:06 | CCD | Continuity of Care Document ---
Author Author Trish AMIN Organization Unknown Address [address] [place] [address] [place] [address] Phone [phone] Problems Description No Information Available Social History Type Date Description Comments Sex Unknown ETOH Use Rarely consumes alcohol Tobacco Use Start: Unknown Patient has never smoked Tobacco Use Start: Unknown The Patient Has Never Vaped Smoking Status Reviewed: 01/23/21 The Patient Has Never Vaped Allergies, Adverse Reactions, Alerts Active Allergies Criticality Reaction | Severity Comments Date Bee Sting Unable to assess criticality 04/10/2018 Medications Active Medications SIG Qnty Indications Ordering Provide r Date Control Patch Unknown Immunizations Description No Information Available Vital Signs Date Vital Result Comment 06/18/2021 1:56pm BP Systolic 118 mmHg BP Diastolic 78 mmHg Heart Rate 68 /min Respiratory Rate 14 /min O2 % BldC Oximetry 97 % Body Temperature 98.2 F Weight 166.00 lb Height 60 inches 5'0" BMI (Body Mass Index) 32.4 kg/m2 Pain Level 0 01/25/2021 12:48pm BP Systolic 155 mmHg BP Diastolic 94 mmHg Heart Rate 77 /min Respiratory Rate 16 /min O2 % BldC Oximetry 100 % Body Temperature 99.5 F Weight 156.00 lb Height 60 inches 5'0" BMI (Body Mass Index) 30.5 kg/m2 Pain Level 0 Results Description No Information Available Procedures Date Code Description Status 06/18/2021 94581 Preventive Visit New 18-39 Yrs C ompleted 01/25/2021 92185 Office/Outpatient Established Lo w MDM 20-29 Min Completed 01/23/2021 31208 Office/Outpatient Established Lo w MDM 20-29 Min Completed Medical Devices Description No Information Available Encounters Type Date Location Provider Dx Diagnosis Office Visit 06/18/2021 1:00p Main Office MIKHAIL Arauz Z02 .1 Encounter for pre-employment examination Office Visit 01/25/2021 11:15a Main Office MIKHAIL Arauz J06 .9 Acute upper respiratory infection, unspecified Z20.828 Contact w and exposure to ot h viral communicable diseases Office Visit 01/23/2021 11:50a Main Office Leeanna Pabon J0 6.9 Acute upper respiratory infection, unspecified Z20.828 Contact w and exposure to ot h viral communicable diseases Assessments Date Code Description Provider 06/18/2021 Z02.1 Encounter for pre-employment exa mination MIKHAIL Arauz 01/25/2021 J06.9 Acute upper respiratory infectio n, unspecified MIKHAIL Aruaz 01/25/2021 Z20.828 Contact with and (ross spected) exposure to other viral communicable diseases MIKHAIL Arauz 01/23/2021 J06.9 Acute upper respiratory infectio n, unspecified Nancy PabonALena 01/23/2021 Z20.828 Contact with and (ross spected) exposure to other viral communicable diseases Leeanna Pabon Plan of Treatment No Information Available Functional Status Description No Information Available Mental Status Description No Information Available Referrals Description No Information Available
--- OUTSIDE RECORDS SUMMARY | 2021-08-27 07:06 | CCD | Continuity of Care Document ---
Author Author Trish AMIN Organization Unknown Address [address] [place] [address] [place] [address] Phone [phone] Problems Description No Information Available Social History [...] Available Procedures Date Code Description Status 06/18/2021 24195 Preventive Visit New 18-39 Yrs C ompleted 01/25/2021 53375 Office/Outpatient Established Lo w MDM 20-29 Min Completed 01/23/2021 45567 Office/Outpatient Established Lo w MDM 20-29 Min [...] Acute upper respiratory infectio n, unspecified MIKHAIL Arauz 01/25/2021 Z20.828 Contact with and (ross spected) [...]
--- OUTSIDE RECORDS SUMMARY | 2021-08-27 07:07 | CCD | Continuity of Care Document ---
Author Author [facility] Unknown Address [address] [place] [address] [place] [address] Phone [phone] Problems Description No Information Available Social History [...] Available Procedures Date Code Description Status 06/18/2021 71227 Preventive Visit New 18-39 Yrs C ompleted 01/25/2021 30005 Office/Outpatient Established Lo w MDM 20-29 Min Completed 01/23/2021 63026 Office/Outpatient Established Lo w MDM 20-29 Min [...]
--- OUTSIDE RECORDS SUMMARY | 2021-08-27 07:07 | CCD ---
Author Author [facility] Organization [facility] Address Unknown Phone Unavailable Care Team Providers Care Credit Control Clerk Name Role Phone Maring, Earl PA Unavailable Unavailable Maring, Earl PA Unavailable Unavailable Maring, Earl PA Unavailable Unavailable Maring, Earl PA Unavailable Unavailable Maring, Earl PA Unavailable Unavailable Maring, Earl PA Unavailable Unavailable Maring, Earl PA Unavailable Unavailable Maring, Earl PA Unavailable Unavailable Maring, Earl PA Unavailable Unavailable Maring, Earl PA Unavailable Unavailable Maring, Earl PA Unavailable Unavailable Maring, Earl PA Unavailable Unavailable Maring, Earl PA Unavailable Unavailable Maring, Earl PA Unavailable Unavailable Maring, Earl PA Unavailable Unavailable Maring, Earl PA Unavailable Unavailable LETTIERE, A SUKHDEEP PA Unavailable Unavailable LETTIERE, A SUKHDEEP PA Unavailable Unavailable LETTIERE, A SUKHDEEP PA Unavailable Unavailable LETTIERE, A SUKHDEEP PA Unavailable Unavailable LETTIERE, A SUKHDEEP PA Unavailable Unavailable LETTIERE, A SUKHDEEP PA Unavailable Unavailable LETTIERE, A SUKHDEEP PA Unavailable Unavailable LETTIERE, A SUKHDEEP PA Unavailable Unavailable LETTIERE, A SUKHDEEP PA Unavailable Unavailable LETTIERE, A SUKHDEEP PA Unavailable Unavailable LETTIERE, A SUKHDEEP PA Unavailable Unavailable LETTIERE, A SUKHDEEP PA Unavailable Unavailable LETTIERE, A SUKHDEEP PA Unavailable Unavailable LETTIERE, A SUKHDEEP PA Unavailable Unavailable LETTIERE, A SUKHDEEP PA Unavailable Unavailable LETTIERE, A SUKHDEEP PA Unavailable Unavailable LETTIERE, A SUKHDEEP PA Unavailable Unavailable LETTIERE, A SUKHDEEP PA Unavailable Unavailable LETTIERE, A SUKHDEEP PA Unavailable Unavailable LETTIERE, A SUKHDEEP PA Unavailable Unavailable LETTIERE, A SUKHDEEP PA Unavailable Unavailable LETTIERE, A SUKHDEEP PA Unavailable Unavailable LETTIERE, A SUKHDEEP PA Unavailable Unavailable LETTIERE, A SUKHDEEP PA Unavailable Unavailable LETTIERE, A SUKHDEEP PA Unavailable Unavailable LETTIERE, A SUKHDEEP PA Unavailable Unavailable LETTIERE, A SUKHDEEP PA Unavailable Unavailable LETTIERE, A SUKHDEEP PA Unavailable Unavailable LETTIERE, A SUKHDEEP PA Unavailable Unavailable LETTIERE, A SUKHDEEP PA Unavailable Unavailable LETTIERE, A SUKHDEEP PA Unavailable Unavailable NINOSKA, MELBA PA Unavailable Unavailable NINOSKA, MELBA PA Unavailable Unavailable NINOSKA, MELBA PA Unavailable Unavailable NINOSKA, MELBA PA Unavailable Unavailable NINOSKA, MELBA PA Unavailable Unavailable NINOSKA, MELBA PA Unavailable Unavailable NINOSKA, MELBA PA Unavailable Unavailable NINOSKA, MELBA PA Unavailable Unavailable NINOSKA, MELBA PA Unavailable Unavailable NINOSKA, MELBA PA Unavailable Unavailable NINOSKA, MELBA PA Unavailable Unavailable NINOSKA, MELBA PA Unavailable Unavailable NINOSKA, MELBA PA Unavailable Unavailable NINOSKA, MELBA PA Unavailable Unavailable NINOSKA, MELBA PA Unavailable Unavailable NINOSKA, MELBA PA Unavailable Unavailable NINOSKA, MELBA PA Unavailable Unavailable NINOSKA, MELBA PA Unavailable Unavailable NINOSKA, MELBA PA Unavailable Unavailable NINOSKA, MELBA PA Unavailable Unavailable NINOSKA, MELBA PA Unavailable Unavailable NINOSKA, MELBA PA Unavailable Unavailable NINOSKA, MELBA PA Unavailable Unavailable NINOSKA, MELBA PA Unavailable Unavailable NINOSKA, MELBA PA Unavailable Unavailable NINOSKA, MELBA PA Unavailable Unavailable NINOSKA, MELBA PA Unavailable Unavailable NINOSKA, MELBA PA Unavailable Unavailable NINOSKA, MELBA PA Unavailable Unavailable NINOSKA, MELBA PA Unavailable Unavailable NINOSKA, MELBA PA Unavailable Unavailable NINOSKA, MELBA PA Unavailable Unavailable NINOSKA, MELBA PA Unavailable Unavailable NINOSKA, MELBA PA Unavailable Unavailable NINOSKA, MELBA PA Unavailable Unavailable NINOSKA, MELBA PA Unavailable Unavailable Re-disclosure Warning The records that you are about to access may contain information from federally-assisted alcohol or drug abuse programs. If such information is present, then the following federally mandated warning applies: This information has been disclosed to you from records protected by federal confidentiality rules (42 CFR part 2). The federal rules prohibit you from making any further disclosure of this information unless further disclosure is expressly permitted by the written consent of the person to whom it pertains or as otherwise permitted by 42 CFR part 2. A general authorization for the release of medical or other information is NOT sufficient for this purpose. The Federal rules restrict any use of the information to criminally investigate or prosecute any alcohol or drug abuse patient.The records that you are about to access may contain highly sensitive health information, the redisclosure of which is protected by Article 27-F of the [place] [facility] Public Health law. If you continue you may have access to information: Regarding HIV / AIDS; Provided by facilities licensed or operated by the [facility] Office of Mental Health; or Provided by the [facility] Office for People With Developmental Disabilities. If such information is present, then the following [facility] mandated warning applies: This information has been disclosed to you from confidential records which are protected by state law. State law prohibits you from making any further disclosure of this information without the specific written consent of the person to whom it pertains, or as otherwise permitted by law. Any unauthorized further disclosure in violation of state law may result in a fine or snf sentence or both. A general authorization for the release of medical or other information is NOT sufficient authorization for further disc losure. Family History Family Member Name Family Member Gender Family Member Status Date o f Status Description Data Source(s) Unknown Unknown Problem [facility] ([facility]) Encounters Encounter Providers Location Date Indications Data Source(s ) Outpatient Attender: Earl ELIZONDO 08/13/20 09:31:17 AM EDT - 08/13/2021 10:52:38 AM EDT [facility] ([facility] ) Outpatient Attender: SUKHDEEP rayo 06/18/2021 01:00:00 PM EDT [facility] ([facility]) [place] [address] [facility] [address] 04/30/2021 12:00:00 AM EDT eCW1 ([facility]) Outpatient Attender: SUKHDEEP albertoy 01/25/2021 11:15:00 AM EDT MED[facility] ([facility]) Outpatient Attender: MELBA john 01/23/2021 11:50:00 AM EDT [facility] ([facility]) [place] [address] [facility] [address] 01/22/2021 12:00:00 AM EDT eCW1 (Critical access hospital) ( ESTOB) enter Est OB [address] [place] [address] 11/07/2020 12:00:00 AM EST eCW1 (Critical access hospital) ( ESTOB) [facility] Est OB [address] [place] [address] 09/24/2020 12:00:00 AM EST eCW1 (Critical access hospital) ( ESTOB) [facility] [address] [place] [address] 09/21/2020 12:00:00 AM EST eCW1 (Critical access hospital) Medications Medication Brand Name Start Date Product Form Dose Route Admi nistrative Instructions Pharmacy Instructions Status Indications Reaction Description Data Source(s) 168 HR Ethinyl Estradiol 0.53814 MG/HR / norelgestromin 0.84761 MG/HR Transdermal Patch [Xulane] Xulane 150-35 MCG/24HR Xulane 150-35 MCG/24HR 11/07/2020 12:00:00 AM EST active Xulane 150-35 MCG/24HR eCW1 ([facility]) 168 HR Ethinyl Estradiol 0.03848 MG/HR / norelgestromin 0.87086 MG/HR Transdermal Patch [Xulane] Xulane 150-35 MCG/24HR Xulane 150-35 MCG/24HR 11/07/2020 12:00:00 AM EST active Xulane 150-35 MCG/24HR eCW1 ([facility]) 168 HR Ethinyl Estradiol 0.16085 MG/HR / norelgestromin 0.85570 MG/HR Transdermal Patch [Xulane] Xulane 150-35 MCG/24HR Xulane 150-35 MCG/24HR 11/07/2020 12:00:00 AM EST active Xulane 150-35 MCG/24HR eCW1 ([facility]) Insurance Providers Payer name Policy type / Coverage type Policy ID Covered libertarian ID Covered libertarian's relationship to jacob Policy Jacob Plan Information [id number] [facility] [employer] [id number] Self [id number] [place] 306/806 [id number] SP [id number] [place] P[place] 302/307 [id number] SP [id number] BCBS [place] DIV [id number] [place] P[place] 302/307 [id number] SP [id number] [employer] [id number] [id number] BCBS [place] DIV [id number] [facility]IRE ([facility]) O [id number] S [id number] [employer] [place] 306/806 [id number] SP [id number] SELF PAY ONLY [id number] SP [id number] [employer] [id number] [id number] [employer] [id number] [id number] [employer] O [id number] S [id number] [facility] [employer] [id number] Family Dependent [id number] SELF PAY UNAVAILABLE FA2 UNAVAILA BLE [employer] [id number] FA [id number] [employer] [place] [employer] DIV [id number] FA [id number] [employer]BS [place] PPO 302/307 [id number] SP [id number] Problems, Conditions, and Diagnoses Code Display Name Description Problem Type Effective Dates Data Source(s) O16.3 [id number] Unspecified maternal hypertension, third trimester Problem 09/21/2020 12:00:00 AM EST eCW1 ([facility]) Surgeries/Procedures Procedure Description Date Indications Data Source(s) INITIAL PREVENTIVE MEDICINE NEW PT AGE 18-39YRS 2020 12:00:00 AM EDT MED[facility] ([facility]) OFFICE OUTPATIENT VISIT 15 MINUTES 01/25/2021 12:00:00 AM EDT MED[facility] ([facility]) OFFICE OUTPATIENT VISIT 15 MINUTES 01/23/2021 12:00:00 AM EDT MED[facility] ([facility]) Results ID Date Data Source [id number] 08/13/2021 09:45:00 AM EDT [facility] Name Value Range Interpretation Code Description Data Abiola rce(s) Supporting Document(s) SARS-CoV-2 RNA Resp Ql MARK+probe NOT DETECTED [facility] This lab was ordered by [facility] and reported by [facility]. ID Date Data Source [id number] 01/25/2021 12:00:00 AM EDT [facility] Name Value Range Interpretation Code Description Data Abiola rce(s) Supporting Document(s) SARS-CoV2 Rapid Antigen Negative [facility] This lab was reported by [facility]. ID Date Data Source [id number] 01/23/2021 12:00:00 AM EDT [facility] Name Value Range Interpretation Code Description Data Abiola rce(s) Supporting Document(s) SARS-CoV2 Rapid Antigen Negative [facility] This lab was reported by [facility]. ID Date Data Source TOTAL PROTEIN,RANDOM URINE 09/21/2020 12:00:00 AM EST eCW1 ( [facility]) Name Value Range Interpretation Code Description Data Abiola rce(s) Supporting Document(s) 34.4 0.0-12.0 TOTAL PROTEIN,RANDOM URIN E eCW1 ([facility]) ID Date Data Source CREATININE,RANDOM URINE 09/21/2020 12:00:00 AM EST eCW1 ([facility]) Name Value Range Interpretation Code Description Data Abiola rce(s) Supporting Document(s) 170.0 CREATININE,RANDOM URINE eCW1 ( [facility]) ID Date Data Source Pre Eclampsia Profile 09/21/2020 12:00:00 AM EST eCW1 ([facility]) Name Value Range Interpretation Code Description Data Abiola rce(s) Supporting Document(s) > 60.0 >60 GLOMERULAR FILTRATION RATE eCW 1 ([facility]) 0.56 0.55-1.30 CREATININE FOR GFR eCW1 ([facility]) 0.1 0.2-1.0 BILIRUBIN,TOTAL eCW1 ([facility]) 23 12-78 ALT/SGPT eCW1 (Replaced by [facility]) 167 84-246 LDH LACTATE DEHYDROGENASE eCW1 ([facility]) 16 7-37 AST/SGOT eCW1 (Replaced by [facility]) 3.5 2.6-6.0 URIC ACID eCW1 (Replaced by [facility]) ID Date Data Source CBC - Complete Blood Count 09/21/2020 12:00:00 AM EST eCW1 ( [facility]) Name Value Range Interpretation Code Description Data Abiola rce(s) Supporting Document(s) 4.17 4.00-5.40 RED BLOOD COUNT eCW1 ([facility]) 12.9 4.0-10.0 WHITE BLOOD COUNT eCW1 ([facility]) 34.9 36.0-47.0 HEMATOCRIT eCW1 ([facility]) 10.1 12.0-15.5 HEMOGLOBIN eCW1 ([facility]) 83.7 80.0-96.0 MEAN CORPUSCULAR VOLUME e CW1 ([facility]) 14.5 11.5-14.5 RED CELL DISTRIBUTION WID TH eCW1 ([facility]) 297 150-450 PLATELET COUNT, AUTOMATED eCW1 ([facility]) 28.9 32.0-36.5 MEAN CORPUSCULAR HGB CONC eCW1 ([facility]) 24.2 27.0-33.0 MEAN CORPUSCULAR HEMOGLOB IN eCW1 ([facility]) Procedure Social History Code Duration Value Status Description Data Source(s ) Smoking 01/23/2021 12:00:00 AM EDT Patient has never smoked co mpleted Patient has never smoked MEDENT ([facility]) Smoking 11/06/2020 12:00:00 AM EST Never Smoker completed Never S moker eCW1 ([facility]) Smoking 11/06/2020 12:00:00 AM EST Never Smoker completed Never S moker eCW1 ([facility]) Smoking 11/06/2020 12:00:00 AM EST Never Smoker completed Never S moker eCW1 ([facility]) Smoking 09/17/2020 12:00:00 AM EST Never Smoker completed Never S moker eCW1 ([facility]) Smoking 09/17/2020 12:00:00 AM EST Never Smoker completed Never S moker eCW1 ([facility]) Vital Signs ID Date Data Source UNK Name Value Range Interpretation Code Description Data Source(s) Respiratory rate 14 /min 14 /min [facility]) Diastolic blood pressure 78 mm[Hg] 78 mm[Hg] [place] ([facility]) Heart rate 68 /min 68 /min [place] ([facility]) Systolic blood pressure 118 mm[Hg] 118 mm[Hg] M EDENT ([facility]) Body weight 166.00 [lb_av] 166.00 [lb_av] [place] T ([facility]) Body height 60 [in_i] 60 [in_i] [place] ([facility]) 5'0" Body mass index (BMI) [Ratio] 32.4 kg/m2 32.4 k g/m2 [place] ([facility]) Oxygen saturation in Arterial blood by Pulse oximetry 97 % 97 % [place] ([facility]) Body temperature 98.2 [degF] 98.2 [degF] [place] ([facility]) Diastolic blood pressure 94 mm[Hg] 94 mm[Hg] [facility] Body height 60 [in_i] 60 [in_i] [place] ([facility]) 5'0" Body mass index (BMI) [Ratio] 30.5 kg/m2 30.5 k g/m2 [place] ([facility]) Systolic blood pressure 155 mm[Hg] 155 mm[Hg] M EDENT ([facility]) Heart rate 77 /min 77 /min MEDENT ([facility]) Respiratory rate 16 /min 16 /min MEDENT ( [facility]) Oxygen saturation in Arterial blood by Pulse oximetry 100 % 100 % MEDENT ([facility]) Body temperature 99.5 [degF] 99.5 [degF] MEDENT ([facility]) Body weight 156.00 [lb_av] 156.00 [lb_av] MEDEN T ([facility]) Body temperature 99.3 [degF] 99.3 [degF] MEDENT ([facility]) Oxygen saturation in Arterial blood by Pulse oximetry 98 % 98 % MEDENT ([facility]) Respiratory rate 16 /min 16 /min MEDENT ( [facility]) Systolic blood pressure 133 mm[Hg] 133 mm[Hg] M EDENT ([facility]) Diastolic blood pressure 84 mm[Hg] 84 mm[Hg] MEDENT ([facility]) Heart rate 82 /min 82 /min MEDENT ([facility]) Body weight 136.00 [lb_av] 136.00 [lb_av] MEDEN T ([facility]) Body height 60 [in_i] 60 [in_i] MEDENT ([facility]) 5'0" Body mass index (BMI) [Ratio] 26.6 kg/m2 26.6 k g/m2 MEDENT ([facility]) Body weight 172.4 [lb_av] 172.4 [lb_av] eCW1 ([facility]) Body weight 78.2 kg 78.2 kg eCW1 ([facility]) Body height 60 [in_i] 60 [in_i] eCW1 ([facility]) Body mass index (BMI) [Ratio] 33.67 kg/m2 33.67 kg/m2 [facility] ([facility]) Systolic blood pressure 122 mm[Hg] 122 mm[Hg] e CW1 ([facility]) Diastolic blood pressure 88 mm[Hg] 88 mm[Hg] eCW1 ([facility]) Body weight 191.4 [lb_av] 191.4 [lb_av] eCW1 ([facility]) Body weight 86.82 kg 86.82 kg eCW1 ([facility]) Body height 60 [in_i] 60 [in_i] eCW1 ([facility]) Body mass index (BMI) [Ratio] 37.38 kg/m2 37.38 kg/m2 eCW1 ([facility]) Systolic blood pressure 140 mm[Hg] 140 mm[Hg] e CW1 ([facility]) Diastolic blood pressure 88 mm[Hg] 88 mm[Hg] eCW1 ([facility]) Patient Treatment Plan of Care Planned Activity Planned Date Details Description Data Source (s) 168 HR Ethinyl Estradiol 0.01298 MG/HR / norelgestromin 0.78262 MG/HR Transdermal Patch [Xulane] 11/07/2020 12:00:00 AM EST eCW1 ([facility]) 168 HR Ethinyl Estradiol 0.04286 MG/HR / norelgestromin 0.35175 MG/HR Transdermal Patch [Xulane] 11/07/2020 12:00:00 AM EST eCW1 ([facility]) 168 HR Ethinyl Estradiol 0.42986 MG/HR / norelgestromin 0.37673 MG/HR Transdermal Patch [Xulane] 11/07/2020 12:00:00 AM EST eCW1 ([facility])
--- OUTSIDE RECORDS SUMMARY | 2021-08-27 07:07 | CCD | Continuity of Care Document ---
Author Author Trish AMIN Organization Unknown Address [address] [place] [address] [place] [address] Phone [phone] Problems Description No Information Available Social History [...] Available Procedures Date Code Description Status 06/18/2021 30120 Preventive Visit New 18-39 Yrs C ompleted 01/25/2021 [id number] Office/Outpatient Established Lo w MDM 20-29 Min Completed 01/23/2021 32973 Office/Outpatient Established Lo w MDM 20-29 Min [...]
--- OUTSIDE RECORDS SUMMARY | 2021-08-27 08:07 | CCD ---
Author Author [facility] Organization [facility] Address Unknown Phone Unavailable Care Team Providers Care Deputy Of Counter Intelligence Name Role Phone Maring, Earl PA Unavailable [...] A SUKHDEEP PA Unavailable Unavailable LETTIERE, A SUKDHEEP PA Unavailable Unavailable LETTIERE, A SUKHDEEP PA [...] is protected by Article 27-F of the [facility] Public Health law. If you continue you may have access to information: Regarding HIV / AIDS; Provided by facilities licensed or operated by the [facility] Office of Mental Health; or Provided by the [facility] Office for People With Developmental Disabilities. If such information is present, then the following [facility] mandated warning applies: This information has been [...] law may result in a fine or nursing home sentence or both. A general authorization for [...] EDT - 08/13/2021 10:52:38 AM EDT [facility] ([facility] ) Outpatient Attender: SUKHDEEP rayo 06/18/2021 01:00:00 PM EDT [facility] ([facility]) [place] [address] [address] 04/30/2021 12:00:00 AM EDT eCW1 ([facility]) Outpatient Attender: SUKHDEEP albertoy 01/25/2021 11:15:00 AM EDT MEDENT ([facility]) Outpatient Attender: MELBA john 01/23/2021 11:50:00 AM EDT MEDENT ([facility]) [place] [address] [address] 01/22/2021 12:00:00 AM EDT eCW1 ([facility]) ( ESTOB) enter Est OB [address] [place] [address] 11/07/2020 12:00:00 AM EST eCW1 ([facility]) ( ESTOB) WCenter Est OB [address] [place] [address] 09/24/2020 12:00:00 AM EST eCW1 ([facility]) ( ESTOB) WCenter Est OB [address] [place] [address] 09/21/2020 12:00:00 AM EST eCW1 ([facility]) Medications Medication Brand Name Start Date Product Form Dose Route Admi nistrative Instructions Pharmacy Instructions Status Indications Reaction Description Data Source(s) 168 HR Ethinyl Estradiol 0.95398 MG/HR / norelgestromin 0.04394 MG/HR Transdermal Patch [Xulane] Xulane 150-35 MCG/24HR Xulane 150-35 MCG/24HR 11/07/2020 12:00:00 AM EST active Xulane 150-35 MCG/24HR eCW1 ([facility]) 168 HR Ethinyl Estradiol 0.70770 MG/HR / norelgestromin 0.90012 MG/HR Transdermal Patch [Xulane] Xulane 150-35 MCG/24HR Xulane 150-35 MCG/24HR 11/07/2020 12:00:00 AM EST active Xulane 150-35 MCG/24HR eCW1 ([facility]) 168 HR Ethinyl Estradiol 0.79302 MG/HR / norelgestromin 0.50898 MG/HR Transdermal Patch [Xulane] Xulane 150-35 MCG/24HR Xulane 150-35 MCG/24HR 11/07/2020 12:00:00 AM EST active Xulane 150-35 MCG/24HR eCW1 ([facility]) Insurance Providers Payer name Policy type / Coverage type Policy ID Covered constitution party ID Covered constitution party's relationship to jacob Policy Jacob Plan Information [id number] [facility] [employer] [id number] Self [id number] [place] 306/[id number] SP [id number] [place] PPO 302/307 [id number] SP [id number] BCBS EMPIRE MIGUEL DIV [id number] [place] PPO 302/307 [id number] SP [id number] [employer] [id number] [id number] BCBS E[employer] MIGUEL DIV [id number] EMPIRE ([facility]) O [id number] S [id number] [employer] [place] 306/[id number] SP [id number] SELF PAY ONLY [id number] SP [id number] [employer] [id number] [id number] [employer] [id number] FA2 [id number] [employer] O [id number] S [id number] [facility] Commercial [id number] Family Dependent [id number] SELF PAY UNAVAILABLE FA2 UNAVAILA BLE [employer] [id number] FA [id number] BCBS [employer] DIV [id number] FA [id number] BCBS [place] PPO 302/307 [id number] SP [id number] Problems, Conditions, and Diagnoses Code Display Name Description Problem Type Effective Dates Data Source(s) O16.3 [id number] Unspecified maternal hypertension, third trimester Problem 09/21/2020 12:00:00 AM EST eCW1 ([facility]) Surgeries/Procedures Procedure Description Date Indications Data Source(s) INITIAL PREVENTIVE MEDICINE NEW PT AGE 18-39YRS 2020 12:00:00 AM EDT MEDENT ([facility]) OFFICE OUTPATIENT VISIT 15 MINUTES 01/25/2021 12:00:00 AM EDT MEDENT ([facility]) OFFICE OUTPATIENT VISIT 15 MINUTES 01/23/2021 12:00:00 AM EDT MEDENT ([facility]) Results ID Date Data Source [id number] 08/13/2021 09:45:00 AM EDT [facility] Name Value Range Interpretation Code Description Data Abiola rce(s) Supporting Document(s) SARS-CoV-2 RNA Resp Ql MARK+probe NOT DETECTED [facility] This lab was ordered by [facility] and reported by [facility]. ID Date Data Source [id number] 01/25/2021 12:00:00 AM EDT [facility] Name Value Range Interpretation Code Description Data Abiola rce(s) Supporting Document(s) SARS-CoV2 Rapid Antigen Negative [facility] reported by [facility]. ID Date Data Source [id number] 01/23/2021 12:00:00 AM EDT [facility] Name Value Range Interpretation Code Description Data Abiola rce(s) Supporting Document(s) SARS-CoV2 Rapid Antigen [facility] was reported by [facility]. ID Date Data Source TOTAL PROTEIN,RANDOM URINE 09/21/2020 12:00:00 AM EST eCW1 ( [facility]) Name Value Range Interpretation Code Description Data Abiola rce(s) Supporting Document(s) 34.4 0.0-12.0 TOTAL PROTEIN,RANDOM URIN E eCW1 ([facility]) ID Date Data Source CREATININE,RANDOM URINE 09/21/2020 12:00:00 AM EST eCW1 ([facility]) Name Value Range Interpretation Code Description Data Abiola rce(s) Supporting Document(s) 170.0 CREATININE,RANDOM URINE eCW1 ( [facility]) ID Date Data Source Pre Eclampsia Profile 09/21/2020 12:00:00 AM EST eCW1 ([facility]) Name Value Range Interpretation Code Description Data Abiola rce(s) Supporting Document(s) > 60.0 >60 GLOMERULAR FILTRATION RATE eCW 1 ([facility]) 0.56 0.55-1.30 CREATININE FOR GFR eCW1 ([facility]) 0.1 0.2-1.0 BILIRUBIN,TOTAL eCW1 ([facility]) 23 12-78 ALT/SGPT eCW1 ([facility]) 167 84-246 LDH LACTATE DEHYDROGENASE eCW1 ([facility]) 16 7-37 AST/SGOT eCW1 ([facility]) 3.5 2.6-6.0 URIC ACID eCW1 ([facility]) ID Date Data Source CBC - Complete Blood Count 09/21/2020 12:00:00 AM EST eCW1 ( [facility]) Name Value Range Interpretation Code Description Data Aibola rce(s) Supporting Document(s) 4.17 4.00-5.40 RED BLOOD COUNT eCW1 ([facility]) 12.9 4.0-10.0 WHITE BLOOD COUNT eCW1 ([facility]) 34.9 36.0-47.0 HEMATOCRIT eCW1 ([facility]) 10.1 12.0-15.5 HEMOGLOBIN eCW1 ([facility]) 83.7 80.0-96.0 MEAN CORPUSCULAR VOLUME e CW1 ([facility]) 14.5 11.5-14.5 RED CELL DISTRIBUTION WID TH eCW1 ([facility]) 297 150-450 PLATELET COUNT, AUTOMATED eCW1 ([facility]) 28.9 32.0-36.5 MEAN CORPUSCULAR HGB CONC eCW1 ([facility]) 24.2 27.0-33.0 MEAN CORPUSCULAR HEMOGLOB IN eCW1 ([facility]) Procedure Social History Code Duration Value Status Description Data Source(s ) Smoking 01/23/2021 12:00:00 AM EDT Patient has never smoked co mpleted Patient has never smoked MEDENT ([facility]) Smoking 11/06/2020 12:00:00 AM EST Never Smoker completed Never S moker eCW1 ([facility]) Smoking 11/06/2020 12:00:00 AM EST Never Smoker completed Never S moker eCW1 ([facility]) Smoking 11/06/2020 12:00:00 AM EST Never Smoker completed Never S moker eCW1 ([facility]) Smoking 09/17/2020 12:00:00 AM EST Never Smoker completed Never S moker eCW1 ([facility]) Smoking 09/17/2020 12:00:00 AM EST Never Smoker completed Never S moker eCW1 ([facility]) Vital Signs ID Date Data Source UNK Name Value Range Interpretation Code Description Data Source(s) Systolic blood pressure 118 mm[Hg] 118 mm[Hg] [facility] Body weight 166.00 [lb_av] 166.00 [lb_av] MEDEN T ([facility]) Diastolic blood pressure 78 mm[Hg] 78 mm[Hg] MEDENT ([facility]) Respiratory rate 14 /min 14 /min [facility] Oxygen saturation in Arterial blood by Pulse oximetry 97 % 97 % [facility] Heart rate 68 /min 68 /min [facility]) Body temperature 98.2 [degF] 98.2 [degF] [facility] Body height 60 [in_i] 60 [in_i] MEDENT ([facility]) 5'0" Body mass index (BMI) [Ratio] 32.4 kg/m2 32.4 k g/m2 [facility] ([facility]) Diastolic blood pressure 94 mm[Hg] 94 mm[Hg] MEDENT ([facility]) Body weight 156.00 [lb_av] 156.00 [lb_av] MEDEN T ([facility]) Body height 60 [in_i] 60 [in_i] MEDENT ([facility]) 5'0" Systolic blood pressure 155 mm[Hg] 155 mm[Hg] EDENT ([facility]) Body mass index (BMI) [Ratio] 30.5 kg/m2 30.5 k g/m2 MEDENT ([facility]) Heart rate 77 /min 77 /min MEDENT ([facility]) Respiratory rate 16 /min 16 /min MEDENT ( [facility]) Oxygen saturation in Arterial blood by Pulse oximetry 100 % 100 % MED[facility] ([facility]) Body temperature 99.5 [degF] 99.5 [degF] MED[facility] ([facility]) Body temperature 99.3 [degF] 99.3 [degF] MEDENT ([facility]) Respiratory rate 16 /min 16 /min MEDENT ( [facility]) Systolic blood pressure 133 mm[Hg] 133 mm[Hg] M EDENT ([facility]) Diastolic blood pressure 84 mm[Hg] 84 mm[Hg] MEDENT ([facility]) Heart rate 82 /min 82 /min MEDENT ([facility]) Oxygen saturation in Arterial blood by Pulse oximetry 98 % 98 % MEDENT ([facility]) Body weight 136.00 [lb_av] 136.00 [lb_av] MEDEN T ([facility]) Body height 60 [in_i] 60 [in_i] MEDENT ([facility]) 5'0" Body mass index (BMI) [Ratio] 26.6 kg/m2 26.6 k g/m2 MEDENT ([facility]) Body weight 172.4 [lb_av] 172.4 [lb_av] W1 ([facility]) Body weight 78.2 kg 78.2 kg eCW1 ([facility]) Body height 60 [in_i] 60 [in_i] eCW1 ([facility]) Body mass index (BMI) [Ratio] 33.67 kg/m2 33.67 kg/m2 [facility] ([facility]) Systolic blood pressure 122 mm[Hg] 122 mm[Hg] e CW1 ([facility]) Diastolic blood pressure 88 mm[Hg] 88 mm[Hg] eCW1 ([facility]) Body weight 191.4 [lb_av] 191.4 [lb_av] eCW1 ([facility]) Body weight 86.82 kg 86.82 kg eCW1 ([facility]) Body height 60 [in_i] 60 [in_i] eCW1 ([facility]) Body mass index (BMI) [Ratio] 37.38 kg/m2 37.38 kg/m2 eCW1 ([facility]) Systolic blood pressure 140 mm[Hg] 140 mm[Hg] e CW1 ([facility]) Diastolic blood pressure 88 mm[Hg] 88 mm[Hg] eCW1 ([facility]) Patient Treatment Plan of Care Planned Activity Planned Date Details Description Data Source (s) 168 HR Ethinyl Estradiol 0.36457 MG/HR / norelgestromin 0.95590 MG/HR Transdermal Patch [Xulane] 11/07/2020 12:00:00 AM EST eCW1 ([facility]) 168 HR Ethinyl Estradiol 0.78287 MG/HR / norelgestromin 0.85903 MG/HR Transdermal Patch [Xulane] 11/07/2020 12:00:00 AM EST eCW1 ([facility]) 168 HR Ethinyl Estradiol 0.83266 MG/HR / norelgestromin 0.79039 MG/HR Transdermal Patch [Xulane] 11/07/2020 12:00:00 AM EST eCW1 ([facility])
--- OUTSIDE RECORDS SUMMARY | 2021-08-27 08:07 | CCD | Continuity of Care Document ---
Author Author Trish AMIN Organization Unknown Address [address] [place] [address] [place] [address] Phone [phone] Problems Description No Information Available Social History [...] Available Procedures Date Code Description Status 06/18/2021 78324 Preventive Visit New 18-39 Yrs C ompleted 01/25/2021 06800 Office/Outpatient Established Lo w MDM 20-29 Min Completed 01/23/2021 24056 Office/Outpatient Established Lo w MDM 20-29 Min [...]
[2021-08-27] MEDS ORDERED: BACT800T5 PO (10:01)
[2021-08-27 10:08] VITALS: BP 146/75
== END 2021-08-27 10:10 | disposition home or self-care (01) ==
LOC: M ED 07:01
DX: N39.0 Urinary tract infection, site not specified (principal); Z91.030 Bee allergy status